=== PATIENT | female | born 1945 ===

== ENCOUNTER 2022-02-16 11:45 | Emergency (ER) | payer MEDICARE ==
[2022-02-16 12:49] VITALS: BP 140/65
--- NOTE | 2022-02-17 13:09 | Electrocardiograph Report ---
[facility] Test Date: 2022-02-16 Test Time: 12:52:34 Pat Name: STEPHANIE MARAVILLA Department: Room: Gender: F [employer]st: marbella : 1945 Requested By: SHAILA LUONG Order Number: [id number] Reading MD: Pauline Farias Measurements Intervals [place] Rate: 56 P: -16 IA: 149 QRS: 2 QRSD: 87 T: 36 QT: 456 QTc: 441 Interpretive Statements Sinus rhythm No previous ECG available for comparison Electronically Signed On 02-17-2022 13:09:26 EDT by Pauline Farias
== END 2022-02-16 17:09 | disposition left against medical advice (07) ==
LOC: ED 11:45
DX: R42 Dizziness and giddiness (principal); Z53.21 Procedure and treatment not carried out due to patient leaving prior to being seen by health care provider
CPT/HCPCS: 93005